=== PATIENT | female | born 1970 | race Caucasian/White ===

== ENCOUNTER 2024-01-17 17:47 | Emergency (ER) | payer OTHER ==
[~2024-01-17] VITALS: Ht 165.1 cm; Wt 77.1 kg
[2024-01-17] MEDS ORDERED: AMOX-430 PO (18:54)
[2024-01-17] MEDS: AMOXICILLIN-CLAVUL 875-125MG TABLET PO ONE (18:59)
[2024-01-17] MEDS ORDERED: AMOXICILLIN-CLAVUL 875-125MG TABLET ONE (18:59)
[2024-01-17 19:01] VITALS: BP 128/71; TEMP 98; O2SAT 97
== END 2024-01-17 19:02 | disposition home or self-care (01) ==
LOC: ER 17:48
DX: H66.92 Otitis media, unspecified, left ear (principal); Z79.899 Other long term (current) drug therapy; Z60.2 Problems related to living alone; Z88.0 Allergy status to penicillin
CPT/HCPCS: A4606; A4663